=== PATIENT | female | born 1940 | race Caucasian/White ===

== ENCOUNTER 2024-01-19 16:07 | Inpatient (IN) | payer OTHER, SELFPAY ==
[2024-01-19] VITALS (13 sets, daily range): BP systolic 83–131; BP diastolic 33–81; BMI 15.9
--- NOTE | 2024-01-19 14:50 | W.PN.CARDCBS ---
Today's Communication / Plan
-
LHC today
Impression / Plan
-
This is a summary, please see scanned consultation
PCP: Vaughn Gerardo MD
PCY: Neymar Schmitt, DO
83 yo WF h/o transapical TAVR 2019, HTN, HLD, Mesenteric artery stenosis post stenting 2015, 2016, Syncope, CHF, CKD, CAD in D2 and ostial RCA by cath 2019 treated medically. She has had 3 admissions since Jul for recurrent transudative pleural
effusions post b/l thoracentesis, last episode in november also with NSTEMI, LVEF dropped from 55-45% at that time. Over the past few weeks she has had progressive dyspnea, outpt Lexiscan last week showing LAD ischemia. She presents to ER 01/16 with
worsening SOB, CXR consistent with recurrent pleural effusions b/l post thoracentesis ~1L. Echo with worsening EF 30-40%. BNP 3638, troponin peaked 137. She is transferred today for [facility].
01/17/24 ECHO - LVEF 35-40%, apical inferior WMA, mod-sev LVH, mild-mod , no AR, mild-mod MR, mod-sev TR
Impression:
Recurrent pleural effusions
NSTEMI/CAD by cath 2020 RCA and D2 disease
Acute on chronic HFrEF 30-40%
AYAAN on CKD
post transapical TAVR 2019
HTN
HLD
Mesenteric artery stenosis post stenting 2015, 2016
Syncope
Plan:
NSTEMI/CAD - Admit IVU post PCI LAD, residual RCA will need to have staged PCI after she recovers from today
Radial band per protocol
DAPT ASA/Plavix, continue statin, BB
cardiac rehab c/s
f/u Dr. Schmitt in 2-4 weeks
Recurrent pleural effusions - Thoracentesis Wed/Wed, Will need repeat CXR to assess for reaccumulation in 1 month
nutrition consult with low albumin
Chronic HFrEF - continue GDMT, will hold off on starting valsartan, and hold spironolactone and lasix for now, continue carvedilol
daily wt, strict I&O
AYAAN/CKD - trend Cr post cath, limit nephrotoxic medications
mesenteric stent - continue DAPT
Progress Note - Hoop Punch And Coiler Operator Helper
Subjective
Date of Service: January 19, 2024
no cp, sob
Objective
Vital Signs and I&O:
Vital Signs
Temp Pulse Resp BP Pulse Ox
96.0 F L 65 20 107/48 99
01/19/24 12:41 01/19/24 12:41 01/19/24 12:41 01/19/24 12:41 01/19/24 12:41
Vital Signs
Temp Pulse Resp BP Pulse Ox
96.0 F L 65 20 107/48 99
01/19/24 12:41 01/19/24 12:41 01/19/24 12:41 01/19/24 12:41 01/19/24 12:41
[2024-01-19 15:12] LABS: ACT-LR - POC 282 Seconds (116-155)
--- NOTE | 2024-01-19 16:58 | W.PN.UPDATE ---
Update Note
Progress Note Update
CTSP re: radial hematoma. R band in place with 11ml air. Proximal to band there is 3' ecchymosis/bruising approx, soft and easy to press out. Good pleth and O2Sat 100%. 2nd prox band placed with 6ml air and good compression with good pulse and
pleth. Will remove prox band over the next hour and then the distal band as originally instructed. Pt without pain or discomfort.
[2024-01-19] MEDS: NSS 1000 IV (17:33)
[2024-01-19] MEDS: LIPITOR 40 MG PO (18:32)
--- NOTE | 2024-01-19 18:41 | ITS.CL.ANGIO ---
Tufting Machine Operator - Angioplasty
Angioplasty
Procedure Report:
LEFT HEART CATHETERIZATION
Date of Procedure: January 19, 2024
Procedures performed:
1: Coronary angiography
2: Left ventricular hemodynamic assessment
3: Percutaneous coronary intervention of the left anterior descending artery with placement of a 2.5 x 28 mm Xience drug-eluting stent postdilated high-pressure with a 2.5 mm diameter noncompliant balloon
Primary Care Physician: Dr. Vaughn Chester
Primary Vocational Rehab Consultant: Dr. Neymar Schmitt
INDICATION: The patient is an 83-year-old woman with a complex past medical history including TAVR with 20mm Simmons (transapicalin 2019, extremely low weight currently weighing 86 pounds, hypertension, prior SMA stenting for presumed mesenteric
ischemia, and new LV systolic dysfunction without clear etiology and recent admissions for congestive heart failure. Nuclear perfusion imaging study suggested dense LAD territory infarct which was new compared to prior studies last year. Cardiac
catheterization prior to TAVR in 2019 showed no clear obstructive disease. She has had no typical angina. She was admitted with progressive dyspnea and found to have large bilateral pleural effusions which were drained at [facility]. Echo
performed on January 16 showed an ejection fraction of 35 to 40% with mild to moderate mitral regurgitation. She had a 20 mm mean gradient across her TAVR placed in 2019. She is referred for coronary angiography. In the past she had her cath done
femoral late due to severe bilateral Raynaud's disease in her hands. Her TAVR was done via transapical approach due to extremely small iliofemoral and aortic vessels. I elected to perform this radially as she had a very good radial pulse and in
the balance I felt femoral access was more risky.
ACCESS: The patient was prepped and draped in usual sterile fashion. A 6 Russian sheath was placed in the right radial artery using the Seldinger over the wire technique.
HEMODYNAMIC FINDINGS (mmHg):
LV(s/d,EDP): 145/9, 13
Ao(s/d,m): 112/47, 71
Mean gradient across aortic valve on pullback: 26 mmHg
ANGIOGRAPHIC FINDINGS:
Single-plane Left Ventriculography in [place] Projection: Not done with renal insufficiency. Creatinine 1.3 this morning.
Coronary Angiography:
Dominance: Right
Left Main: Somewhat difficult to cannulate given the TAVR cage. Ultimately a 5 Russian JL 3.5 was successfully used to cannulate the left main. Some catheter dampening was noted. The left main is small caliber and there does appear to be a smooth
ostial 20 to 30% stenosis.
Left Anterior Descending: The left anterior descending artery is a medium caliber vessel that gives rise to a small to medium high first diagonal branch. The second diagonal branch is a small caliber vessel. There is moderate diffuse disease
involving the second diagonal takeoff followed by a preocclusive 90% mid LAD stenosis. The remainder the LAD is patent with mild luminal regularities and normal distal flow.
Left Circumflex: The left circumflex is a medium caliber vessel that has a long area of 60% smooth disease through the midportion before giving rise to a long tortuous vessel that courses to the lateral apex with IRINA-3 flow. This appears largely
unchanged compared to prior angiography in 2020 prior to TAVR.
Right Coronary: The right coronary artery ostium has heavily calcified. It was engaged with a 4 Russian JR4 diagnostic catheter with some degree of catheter dampening noted despite coaxial engagement. This was also noted in 2020 prior to TAVR.
This ostial 70 to 80% stenosis appears unchanged. The mid RCA has a new 80 to 90% mid stenosis involving the takeoff of the RV marginal branch. This lesion is new and was not present in 2020. Despite this there is normal distal flow in the small
caliber posterior descending artery and posterior left ventricular branch system which are widely patent.
Percutaneous Coronary Intervention (PCI): In light of her clinical presentation and the above angiographic findings, I elected to proceed with a PCI of the LAD. If this went smoothly I would consider PCI of the right coronary artery. Attempts to
engage the left main with a 6 Russian guide were unsuccessful due to difficulty manipulating the sheath and the very small caliber aortic root around the prior TAVR cage. Ultimately I chose a 5 Russian JL 3.5 guiding catheter to engage the left main.
The patient was pretreated with aspirin and Plavix. Unfractionated heparin was given. With some difficulty a Hi-Torque floppy wire was successfully advanced down the LAD and across the preocclusive mid lesion. Predilation was performed with a
2.0 mm diameter balloon. Next a 2.5 x 28 mm Xience drug-eluting stent was deployed in the mid LAD. The stent was postdilated with a 2.5 mm diameter noncompliant balloon inflated to 16 carol distally and 18 carol proximally. There was transient slow
flow in the small caliber jailed diagonal branch however this flow was normalizing at the end of the procedure.
FINAL RESULT: 0% in-stent residual stenosis with an excellent angiographic result
Fluoroscopy Time (min): 18
Radiation Dose (mGy): 364
DAP (Gy.cm2): 21
Closure device: None. A TR band was applied for hemostasis at the right wrist.
Complications: None.
ASSESSMENT:
1: Successful PCI of the LAD with placement of drug-eluting stent as described above.
2: New high-grade mid RCA disease. Unchanged high-grade ostial right disease. I feel this should be treated in a staged fashion given her renal insufficiency and difficulty with 6 Russian sheaths from the arm. I will plan to have her come back for
6 Russian femoral access in a couple weeks.
3: Well compensated left ventricular filling pressures.
4: Moderate prosthesis stenosis. This was a small 20 mm BELKYS and therefore this is an acceptable post- TVAR result.
CONCLUSIONS and RECOMMENDATIONS:
1: Routine post PCI medical therapy and monitoring with uninterrupted DAPT for 1 year. She has been on chronic DAPT in light of her recurrent SMA stenting.
2: Staged PCI of the right coronary artery disease. Given the new mid RCA disease I will plan to treat both the ostial disease and mid right from a 6 Russian femoral approach.
3: Medical therapy with close clinical follow-up for severe LV systolic dysfunction. Hopefully her ejection fraction will improve with reperfusion.
Sivakumar Elkins M.D.
Copy to: Dr. Vaughn Chester
--- NOTE | 2024-01-19 19:33 | PTCARENOTE ---
Received pt from cardiac skill labor w/ R band intact w/ 10 ml of air. Active bleeding noted proximal to radial band. Pt's right hand eccymotic w/ +1 edema. Immediate manual pressure applied. VSS. Pt's right wrist continued to internally ooze. WARE TESTER
and notified and at pt's bedside continually. Multiple hemostatic methods used. (charted under post angio site checks). At this time, Dr. Elkins evaluated pt again. No further bleed noted. Right radial R band intact w/ 2 ml of air. Pt
denies discomfort. Report given to operations supervisor 2nd shift RN for further treatment.
[2024-01-19] MEDS: COREG 3.125 MG PO (19:47)
[2024-01-19] MEDS: TYLENOL 650 MG PO (19:47)
--- NOTE | 2024-01-19 22:56 | PTCARENOTE ---
Pt rec'd at change of shift awake,alert. Dr Elkins at bedside. Radial site remained ecchymotic but soft with good pulse with R band/ 2cc air. Per Dr Elkins verbal order; R band to be removed if stable in an hour. R band was removed, no hematoma or
active bleeding noted. Sinus with first degree on telemetry. Pt assisted oob to bathroom to void. back in bed at this time. right forearm elevated on pillow. Pt instructed on wrist precautions.
call deluna placed within reach.
[2024-01-20 03:22] VITALS: BP 112/47
[2024-01-20 04:17] LABS: Hematocrit 32.4 % (37.0-47.0); Hemoglobin 10.4 g/dL (12.0-16.0); Mean Corp Hgb Conc. 32.1 g/dL (33.0-37.0); Mean Corpuscular Hgb 25.9 pg (27.0-31.0); Mean Corpuscular Volume 80.6 fL (81.0-99.0); Mean Platelet Volume 11.8 fL (7.4-10.4); Platelet Count 260 10^3/uL (130-400); Red Blood Cell Count 4.02 10^6/uL (4.20-5.40); Red Cell Dist. Width 15.8 % (11.5-14.5); White Blood Cell Count 7.3 10^3/uL (4.8-10.8)
[2024-01-20 04:46] LABS: Blood Urea Nitrogen 50 mg/dl (7-17); Calcium 8.4 mg/dl (8.4-10.2); Carbon Dioxide 25 mmol/L (22-30); Chloride 103 mmol/L (98-107); Estimated Creatinine Clearance 21 ml/min; Glucose 83 mg/dl (70-99); HDL Cholesterol 45 mg/dl; LDL Cholesterol, Calculated 87 mg/dl; Potassium 4.5 mmol/L (3.5-5.1); Sodium 133 mmol/L (135-145); Total Cholesterol 147 mg/dl (50-199); Triglyceride 75 mg/dl (10-149); Very Low Density Lipoprotein 15 mg/dl (0-30); eGFR 44.36
[2024-01-20 06:00] VITALS: BMI 15.9
[2024-01-20 07:16] VITALS: BP 136/61
--- NOTE | 2024-01-20 08:45 | W.PN.CARDCBS ---
Addendum entered and electronically signed by Adilene Russ DO 01/20/24 12:46:
I saw and examined the patient.
The Emery Wheel Molder's note was reviewed and I agree with the note.
Comment: Seen and examined. Patient is ambulating around room and overall feels well. Significant ecchymosis right forearm with mild swelling of the hand. No wrist pain. No dizziness or lightheadedness.
General: No acute distress, AAOX3
Heart: Regular, positive S1/S2, 2/6 SM
Lungs: CTA b/l, negative wheezes/rales/rhonchi
Abd: Positive BS, NT/ND, neg rebound/rigidity/guarding
Ext: Significant ecchymosis right hand and forearm. No significant hematoma. Mild swelling of right hand with good strength. +2 radial pulse
Neuro: nonfocal
Plan:
NSTEMI/CAD transferred from [facility] for left heart catheterization
-post PCI LAD, residual RCA 01/19/2024
-Plan for staged PCI planned for 01/[address] Elkins at
-Radial site HT post procedure, this am significant ecchymosis but non tender with good pulse
-hbg dropped ~1g, 10.4
-Vascular ultrasound right hand rule out pseudoaneurysm or vascular complications following cath
-DAPT ASA/Plavix, continue statin, BB
-cardiac rehab c/s after next intervention
-She will have f/u CXR/labs on Wednesday at prior to her next intervention
-f/u Dr. Schmitt in 2-4 weeks
Recurrent pleural effusions - Thoracentesis Wed/Wed, Will need repeat CXR to assess for reaccumulation will check on Wednesday
nutrition consult with low albumin
Chronic HFrEF - continue GDMT, will hold off on starting valsartan d/t hypotension, Cr stable will resume spironolactone and lasix tomorrow, continue carvedilol
daily wt, strict I&O
AYAAN/CKD - Cr 1.69 at today 1.2, will have repeat labs on Wednesday at
ok to resume Lasix and spironolactone tomorrow, no LISS/ARB for now
mesenteric stent - continue DAPT
Anticipate discharge home later today if vascular ultrasound of right upper extremity okay
Original Note:
Today's Communication / Plan
-
post PCI LAD, residual RCA for staged intervention
rad site HT post procedure, ecchymotic
Impression / Plan
-
This is a summary, please see scanned consultation
PCP: Vaughn Gerardo MD
PCY: Neymar Schmitt,
83 yo WF h/o transapical TAVR 2019, HTN, HLD, Mesenteric artery stenosis post stenting 2015, 2016, Syncope, CHF, CKD, CAD in D2 and ostial RCA by cath 2019 treated medically. She has had 3 admissions since Jul for recurrent transudative pleural
effusions post b/l thoracentesis, last episode in november also with NSTEMI, LVEF dropped from 55-45% at that time. Over the past few weeks she has had progressive dyspnea, outpt Lexiscan last week showing LAD ischemia. She presents to ER 01/16 with
worsening SOB, CXR consistent with recurrent pleural effusions b/l post thoracentesis ~1L. Echo with worsening EF 30-40%. BNP 3638, troponin peaked 137. She is transferred today for [facility].
01/17/24 ECHO - LVEF 35-40%, apical inferior WMA, mod-sev LVH, mild-mod , no AR, mild-mod MR, mod-sev TR
Impression:
Recurrent pleural effusions
NSTEMI/CAD by cath 2020 RCA and D2 disease
Acute on chronic HFrEF 30-40%
AYAAN on CKD
post transapical TAVR 2019
HTN
HLD
Mesenteric artery stenosis post stenting 2015, 2016
Syncope
Plan:
NSTEMI/CAD - Admit IVU post PCI LAD, residual RCA will need to have staged PCI planned for 01/[address] Elkins at
Radial site HT post procedure, this am significant ecchymosis but non tender with good pulse
hbg dropped ~1g, 10.4
DAPT ASA/Plavix, continue statin, BB
cardiac rehab c/s after next intervention
She will have f/u CXR/labs on Wednesday at prior to her next intervention
f/u Dr. Schmitt in 2-4 weeks
Recurrent pleural effusions - Thoracentesis Wed/Wed, Will need repeat CXR to assess for reaccumulation will check on Wednesday
nutrition consult with low albumin
Chronic HFrEF - continue GDMT, will hold off on starting valsartan d/t hypotension, Cr stable will resume spironolactone and lasix tomorrow, continue carvedilol
daily wt, strict I&O
AYAAN/CKD - Cr 1.69 at today 1.2, will have repeat labs on Wednesday at
ok to resume Lasix and spironolactone tomorrow, no LISS/ARB for now
mesenteric stent - continue DAPT
Progress Note - Screening Technician
Subjective
Date of Service: January 20, 2024
no cp, sob
Objective
Labs:
01/20/24 03:33
01/20/24 03:33
Labs
Hgb 10.4 g/dL (12.0-16.0) L 01/20/24 03:33
Hct 32.4 % (37.0-47.0) L 01/20/24 03:33
Plt Count 260 10^3/uL (130-400) 01/20/24 03:33
Sodium 133 mmol/L (135-145) L 01/20/24 03:33
Potassium 4.5 mmol/L (3.5-5.1) 01/20/24 03:33
BUN 50 mg/dl (7-17) H 01/20/24 03:33
Creatinine 1.2 mg/dL (0.6-1.0) H 01/20/24 03:33
Glucose 83 mg/dl (70-99) 01/20/24 03:33
Vital Signs and I&O:
Vital Signs
Temp Pulse Resp BP Pulse Ox
97.5 F 71 20 136/61 100
01/20/24 07:14 01/20/24 08:30 01/20/24 07:14 01/20/24 07:16 01/20/24 07:14
Vital Signs
Temp Pulse Resp BP Pulse Ox
97.5 F 71 20 136/61 100
01/20/24 07:14 01/20/24 08:30 01/20/24 07:14 01/20/24 07:16 01/20/24 07:14
Intake & Output
01/18/24 01/19/24 01/20/24 01/21/24
06:59 06:59 06:59 06:59
Intake Total 100 / 100
Balance 100 / 100
Physical Exam
Physical Exam
NAD< AOX3
S1, S2, RRR
diminished b/l bases, no rales or wheeze
SNTND bsx4
No LE edema
R rad site with significant ecchymosis up to elbow, minimal swelling, good pulse
[2024-01-20] MEDS: COREG 3.125 MG PO (08:48)
[2024-01-20] MEDS: PLAVIX 75 MG PO (08:48)
[2024-01-20] MEDS: LOW STRENGTH ASPIRIN 81 MG PO (08:48)
[2024-01-20 11:30] VITALS: BP 87/65
[2024-01-20 11:31] VITALS: BP 110/54
--- NOTE | 2024-01-20 11:48 | CM ---
Chart reviewed. Patient is independent of ADLS, lives alone in a [address], 1 [place], 0 DME. Patient would like to VN with [place]. Referral sent to [facility] Plan is for the patient to return home with [facility]
--- NOTE | 2024-01-20 13:57 | W.DS.TRANS ---
DC Summary - Change Management Lead
-
Discharge Instructions:
Sleep Apnea Risk Low
Discharge Diagnosis/Procedures Angioplasty with stent to LAD
Diet Low Cholesterol,2 Gram Sodium
Driving Restrictions No driving for 24 hours
Blood Work You will have CXR and labwork done on Wednesday
29 at [place] (orders sent by Dr. Elkins)
Others Tests [facility] will [facility] on Wed
1 for RCA intervention
Other Services Cardiac Rehab
Instructions:
Stand-Alone Forms: DC Instructions- Cath/EP Lab
Changes to Home Medications: No
Discharge Medications:
DC Medications w/original date entered in [place]
ascorbic acid (vitamin C) 500 mg tablet (Vitamin C) 500 mg PO DAILY Supplement 12/20/19
aspirin 81 mg tablet,delayed release (Aspir-Low) 81 mg PO DAILY Blood clot prevention/tx 12/20/19
calcium carbonate 600 mg PO BID Supplement 12/20/19
clopidogrel 75 mg tablet 75 mg PO DAILY Blood clot prevention/tx 12/20/19
ergocalciferol (vitamin D2) 10 mcg (400 unit) tablet 400 unit PO BID Supplement 12/20/19
lecithin 1,200 mg capsule 1,200 mg PO TID Supplement 12/20/19
magnesium oxide 500 mg capsule 500 mg PO DAILY Supplement 12/20/19
acetaminophen 325 mg tablet 650 mg (2 x 325 mg) PO Q6HPRN PRN mild pain 02/23/20
atorvastatin 40 mg tablet 40 mg PO QPM High cholesterol 02/23/20
amoxicillin 500 mg tablet 2,000 mg PO PRN PRN dental work 01/19/24
carvedilol 3.125 mg tablet (Coreg) 3.125 mg PO BID Heart Failure 01/19/24
furosemide 40 mg tablet 40 mg PO DAILY Fluid Retention/Swelling 01/19/24
lactobacillus combination no.4 3 billion cell capsule (Probiotic) 3,000 mmu cells PO DAILY Supplement 01/19/24
spironolactone 25 mg tablet 25 mg PO DAILY Fluid Retention/Swelling 01/19/24
Home Medication Changes
Pending Results: No
[2024-01-20 14:26] LABS: ACT-LR - POC > 397 Seconds (116-155)
--- NOTE | 2024-01-20 15:10 | PTCARENOTE ---
Pt seen by Esmer Veronica NP and . Ultrasound of right arm done, report reviewed. Telemetry and IV device removed. Discharge instructions reviewed with pt regarding activity and driving guidelines, medications and their possible side effects,
wound care, reporting cares and concerns and follow up appt's. Very good understanding verbalized. Pt escorted out via wheelchair and pt discharged to home.
== END 2024-01-20 15:17 | disposition home health service (06) | DRG 321 ==
LOC: IVU 16:07
PROVIDERS: Nurse Practitioner Adult Health; ADMITTING PHYSICIAN Internal Medicine Interventional Cardiology; FAMILY PHYSICIAN Family Medicine
PROC: B2111ZZ Fluoroscopy of Multiple Coronary Arteries using Low Osmolar Contrast (ICD-10-PCS; 2024-01-19)
PROC: 027034Z Dilation of Coronary Artery, One Artery with Drug-eluting Intraluminal Device, Percutaneous Approach (ICD-10-PCS; 2024-01-19)
PROC: 4A023N7 Measurement of Cardiac Sampling and Pressure, Left Heart, Percutaneous Approach (ICD-10-PCS; 2024-01-19)
DX: I21.4 Non-ST elevation (NSTEMI) myocardial infarction (principal); I50.23 Acute on chronic systolic (congestive) heart failure; N17.9 Acute kidney failure, unspecified; I13.0 Hypertensive heart and chronic kidney disease with heart failure and stage 1 through stage 4 chronic kidney disease, or unspecified chronic kidney disease; I25.10 Atherosclerotic heart disease of native coronary artery without angina pectoris; N18.9 Chronic kidney disease, unspecified; E78.5 Hyperlipidemia, unspecified; I73.00 Raynaud's syndrome without gangrene; I25.2 Old myocardial infarction; Z79.82 Long term (current) use of aspirin; Z79.899 Other long term (current) drug therapy; Z95.3 Presence of xenogenic heart valve
CPT/HCPCS: 80048; 80061; 85027; 85347; 87070; 93005; 93458; 93930; C1725; C1769; C1874; C1887; C1894; C9600; Q9967

== ENCOUNTER 2024-01-26 08:11 | Day surgery (SDC) | payer OTHER, SELFPAY ==
[2024-01-26] VITALS (39 sets, daily range): BP systolic 87–147; BP diastolic 38–99; BMI 16.6
[2024-01-26 10:37] LABS: ACT-LR - POC 165 Seconds (116-155)
[2024-01-26 10:48] LABS: ACT-LR - POC 211 Seconds (116-155)
[2024-01-26 11:13] LABS: ACT-LR - POC 371 Seconds (116-155)
[2024-01-26 11:22] LABS: ACT-LR - POC 316 Seconds (116-155)
--- NOTE | 2024-01-26 11:56 | ITS.CL.ANGIO ---
Addendum entered and electronically signed by Sivakumar Elkins MD 01/27/24 11:33:
Correct Date of Procedure: January 26, 2024
Original Note:
Fence Erector - Angioplasty
Angioplasty
Procedure Report:
RIGHT and LEFT HEART CATHETERIZATION
Date of Procedure: November 26, 2023
Procedures performed:
1: Percutaneous coronary mention of the right coronary artery with placement of two drug-eluting stent (2.75 x 28 mm Xience postdilated with a 3.0 mm diameter noncompliant balloon to the mid RCA; 3.25 x 23 mm Xience postdilated with a 3.5 mm
diameter noncompliant balloon distally and 3.75 mm diameter noncompliant balloon ostially)
Primary Care Physician: Dr. Vaughn Gerardo
Primary Garment Examiner: Dr. Neymar Schmitt
INDICATION: The patient is an 83-year-old woman with a complex past medical history who presents for staged PCI of the right coronary artery. This will be done via a left common femoral artery approach due to inability to use 6 Salvadorean catheters
from a right radial. In light of persistently elevated BNP and persistent pleural effusions I we will elect to perform a right heart cath today as well. She underwent PCI of the LAD via right radial approach last week without complication.
ACCESS: The patient was prepped and draped in usual sterile fashion. A 6 Salvadorean sheath was placed in the left common femoral artery using the Seldinger over the wire technique. Ultrasound guidance was used and micropuncture kit was employed.
Angiography showed good puncture above the bifurcation and the common femoral artery. A 6 Salvadorean sheath was placed in the right common femoral vein using ultrasound guidance and an [id number] technique.
HEMODYNAMIC FINDINGS (mmHg):
RA(a,v,m): 14, 10, 10
RV(s/d,EDP): 50/7, 11
PA(s/d/m): 50/21, 32
PCWP(a,v,m): 24, 24, 23
LV(s/d,EDP): Valve not crossed
Ao(s/d,m): 151/55, 89
Oxygen Saturations (mg/dl):
PA: 52% on room air
LV: 92% on room air
Cardiac Output/Index (l/min / l/min/m2):
Estimated Rich Method: 2.3 / 1.7
ANGIOGRAPHIC FINDINGS:
Coronary Angiography: Please refer to full diagnostic study performed on January 19, 2024 last week.
Description of procedure: I advanced a 035 J-wire up the aorta without difficulty. When advancing the 6 Salvadorean JR4 guide over the wire it became apparent that there was interaction with the previously placed mesenteric stent. I assume that the
035 wire went through the stent and then was dislodged with the advancement of the guiding catheter. That said, I did not feel significant resistance with the catheter but rather noticed movement of the stent in the aorta. I suppose it is also
possible that the stent was already dislodged and then my wire and catheter further dislodged it. In retrospect, the CT a performed in 2019 pre-TAVR demonstrated that the stent was extending from the ostium all the way across the aorta to the
opposite wall. At this point I called Dr. Suraj patel from vascular surgery to assist in this unusual situation. We elected to snare the freely mobile stent with a 20 mm gooseneck snare. The stent was captured and then pulled back to the 6 Salvadorean
guide. Unfortunately it would not prolapse through the guide. The sheath was upsized to an 8 and again the snared stent would not collapse into the 8 Salvadorean guide. Fortunately, after placement of a 10 Salvadorean short sheath in the left common
femoral artery, I was able to pull the snared stent out through the guide. This did distort the tip of the 10 Salvadorean guide which was then replaced with a new 10 Salvadorean sheath. I then proceeded to the coronary intervention which is outlined below.
Percutaneous Coronary Intervention (PCI): The patient was pretreated with aspirin and Plavix. Unfractionated heparin was given. A 6 Salvadorean JR4 guiding catheter was used to engage the right coronary artery. A short Hi-Torque floppy wire was
successfully advanced into the distal right coronary artery. Predilation was performed with a 2.0 x 12 mm balloon at the mid RCA lesion. Next a 2.75 x 28 mm stent was deployed in the mid RCA. The stent was postdilated with a 3.0 mm diameter
noncompliant balloon at 16 carol distally, 18 carol in the midportion and 16 carol proximally. Next, a 3.25 x 28 mm stent was deployed proximally covering the ostium and in overlapping fashion with the distal stent. The overlap section was postdilated
with 3.5 mm diameter noncompliant balloon. The ostium was postdilated with a 3.5 followed by a 3.75 mm diameter noncompliant balloon. The ostium was flared at high pressure with a 3.75 mm diameter noncompliant balloon
FINAL RESULT: 0% in-stent residual stenosis of both the ostial and mid overlapping stents with a excellent angiographic result and IRINA-3 flow in all vessels.
Other angiography: At the end of the procedure a hand-injection through the 10 Salvadorean left common femoral sheath showed the vessel to be patent with mild nonflow limiting intimal disruption in the external iliac artery. No flow-limiting dissection.
The sheath did not obstruct flow in the common femoral artery.
FINAL HEMODYNAMICS:
PA(s/d/m): 46/22, 30
PCWP(a,v,m): 17, 18, 16
Fluoroscopy Time (min): 30.2
Radiation Dose (mGy): 327
DAP (Gy.cm2): 26
Closure device: None. A TR band was applied for hemostasis at the right wrist.
Complications: Dislodgment of the previously placed mesenteric stent which was extending into the aorta. Successfully retrieved without acute complication.
ASSESSMENT:
1: Successful PCI of the right coronary artery with placement of 2 drug-eluting stents to the ostium and mid RCA as described above.
2: Dislodgment and retrieval of the previously placed mesenteric stent as described above.. As this was clearly deep into the aorta, I suspect that this was not involved in the ostium. She tolerated this without any symptoms or difficulty so I
elected not to reimage the mesenteric vessels at this time.
CONCLUSIONS and RECOMMENDATIONS:
1: Routine post drug-eluting stent medical therapy and monitoring with uninterrupted dual antiplatelet therapy for at least a year. She had been on chronic DAPT given her complex repeat mesenteric stenting.
2: Close clinical follow-up both for heart failure as well as mesenteric symptoms. Low threshold to reimage prior mesenteric stents with any concerning symptoms. Will discuss with vascular surgeon Dr. Sacha Everett who has been involved in her care
for many years.
Sivakumar Elkins M.D.
Copy to: Dr. Vaughn Gerardo, Dr. Sacha Everett from vascular surgery [facility]
[2024-01-26 12:03] LABS: ACT-LR - POC 218 Seconds (116-155)
[2024-01-26] MEDS: NSS 1000 IV ×3 (12:14→14:45)
[2024-01-26 12:31] LABS: ACT-LR - POC 242 Seconds (116-155)
[2024-01-26 12:39] LABS: ACT-LR - POC 208 Seconds (116-155)
[2024-01-26 12:44] LABS: ACT-LR - POC > 397 Seconds (116-155)
--- NOTE | 2024-01-26 15:21 | CM ---
Chart reviewed. Patient is independent of ADLS, lives alone in a 2 STH, 1 SYDNEE, 0 DME. Patient is current with [facility]. Plan is for the patient to return home with [facility]
--- NOTE | 2024-01-26 17:56 | W.PN.UPDATE ---
Update Note
Progress Note Update
Interventional Cardiology Update
Assessed patient at bedside given concern for left groin hematoma. Patient had gotten out of bed to go to the bathroom after bedrest was completed with acute bleed at the left groin access site. Manual pressure was held with successful hemostasis
after few minutes with hematoma pushed out as best possible. FemoStop placed and discussed with nursing in regards to doing a slow wean.
Will maintain patient on bedrest overnight. Will send an urgent type and screen.
Nelly Zhang MD, FACC, [facility]
[2024-01-26 19:24] LABS: Hematocrit 27.5 % (37.0-47.0); Hemoglobin 8.8 g/dL (12.0-16.0)
[2024-01-26] MEDS: LIPITOR PO (19:41)
--- NOTE | 2024-01-26 19:58 | PTCARENOTE ---
Pt received post cardiac cath with stents to RCA done via left femoral artery site . Initially bialateral femoral sites with scant drainage on dressings, no sign of bleeding or hematoma. Ordered bedrest ended at 17:30, pt sat up for 10 minutes in
bed and then walked with RN to bathroom to void. Left groin hematoma present 'like a small babys' head', site with brisk ooze. Pt back to bed and manual pressure applied, 'staff assist button' summoned assistance. Manual pressure held for at least
10 minutes, femstop place on left femoral artery by SAMEER Sandra. present and femstop pressure reduced to 70mmHg. Pt reported left lower back pain and aching in the top of her left foot, DP pulse no longer present with doppler.
at bedside, femstop placement readjusted and pressure reduced to 24mmHg, left posterior pulse present with doppler. Stat H/H and type and screen sent, soft limb restraint on left ankle per to maintain position, heel foams placed
to prevent decubitus. Plan to keep pt on bedrest tonight, hold evening coreg dose. Monitor closely. BP's at pt's baseline throughout, telemetry shows sinus bruon.
[2024-01-26] MEDS: TYLENOL 650 MG PO (20:07)
[2024-01-26] MEDS: COREG 3.125 MG PO (20:09)
[2024-01-26] MEDS: LIPITOR 40 MG PO (21:32)
[2024-01-26 22:20] LABS: Hematocrit 25.1 % (37.0-47.0); Hemoglobin 8.4 g/dL (12.0-16.0)
--- NOTE | 2024-01-26 23:54 | PTCARENOTE ---
Pt received at start of shift, HR SR 60s-70s. R groin site dressing has old drainage, no new drainage, no firmness or hematoma noted. Femstop in place over L groin, 25mmHg. L groin site ecchymotic, no firmness or hematoma noted. Posterior tibialis
and dorsalis pedis arteries positive with Doppler. L ankle soft limb restraint on to maintain leg position. Pt c/o pain throughout back due to being on bedrest all day, tylenol PRN administered. Dr. Elkins at bedside, femstop readjusted and HOB
raised. Reinforced bedrest status w/ pt. Pt states she has not voided since initial bedrest time ended. Purewick placed on pt and encouraged pt to void. 2200 H&H obtained and sent to lab: Hgb 8.4, Hct 25.1. L groin site and pulses distal to femstop
closely monitored. Pt denies any CP, SOB, or lightheadedness/dizziness at this time. Informed to notify RN if any changes, call deluna within reach.
[2024-01-27] VITALS (11 sets, daily range): BP systolic 125–149; BP diastolic 39–60
[2024-01-27] MEDS: TYLENOL 650 MG PO (00:36)
[2024-01-27 05:01] LABS: Blood Urea Nitrogen 44 mg/dl (7-17); Calcium 8.1 mg/dl (8.4-10.2); Carbon Dioxide 26 mmol/L (22-30); Chloride 106 mmol/L (98-107); Estimated Creatinine Clearance 27 ml/min; Glucose 90 mg/dl (70-99); HDL Cholesterol 51 mg/dl; LDL Cholesterol, Calculated 101 mg/dl; Potassium 4.4 mmol/L (3.5-5.1); Sodium 132 mmol/L (135-145); Total Cholesterol 167 mg/dl (50-199); Triglyceride 79 mg/dl (10-149); Very Low Density Lipoprotein 15 mg/dl (0-30); eGFR 55.21
[2024-01-27 05:14] LABS: Hematocrit 27.5 % (37.0-47.0); Mean Corp Hgb Conc. 32.7 g/dL (33.0-37.0); Mean Corpuscular Hgb 26.6 pg (27.0-31.0); Mean Corpuscular Volume 81.4 fL (81.0-99.0); Mean Platelet Volume 11.8 fL (7.4-10.4); Platelet Count 268 10^3/uL (130-400); Red Blood Cell Count 3.38 10^6/uL (4.20-5.40); Red Cell Dist. Width 16.4 % (11.5-14.5); White Blood Cell Count 9.2 10^3/uL (4.8-10.8)
--- NOTE | 2024-01-27 08:09 | W.PN.CARDCBS ---
Addendum entered and electronically signed by Nelly Zhang MD 01/27/24 16:01:
I saw and examined the patient.
The Gold Leaf Layer's note was reviewed and I agree with the note.
Comment: Briefly, Ms. Rivera is a 83-year-old female with multiple comorbid conditions including hypertension, hyperlipidemia, severe aortic stenosis status post transapical TAVR in 2019, CKD stage IIIb, recurrent pleural effusions in the setting of
acute on chronic heart failure with reduced ejection fraction with last EF of 30 to 40%, mesenteric artery stenosis status post stenting in 2016, coronary artery disease status post LAD PCI on January 19, 2024 who now presented with plan for staged
PCI to the RCA status post 2 drug-eluting stent with a 3.25 x 23 mm Xience to the ostium and 2.75 x 28 mm Xience to the mid RCA complicated by dislodgment and subsequent retrieval of previously placed mesenteric stent using a snare through a 10
Portuguese left common femoral arterial access site with post sheath removal hematoma, now stable
Vital signs and lab work reviewed. Hemoglobin now getting close to baseline. Patient needed additional manual pressure held last evening along with short duration of FemoStop. On exam she is an older female, frail, thin, pleasant, awake and
oriented x 3, complains of some shortness of breath after walking around earlier today, decreased breath sounds in bilateral bases, right worse than the left, abdomen is soft, nontender, nondistended with active bowel sounds, left groin site with
dressing in place which is clean, dry and intact, significant ecchymosis but no evidence of hematoma or bruit on exam, warm extremities
Ultrasound of the groin reviewed which was negative for any evidence of pseudoaneurysm or AV fistula.
Plan:
1. Continue dual antiplatelet therapy with recent PCI.
2. Goal-directed medical therapy for underlying ischemic cardiomyopathy.
3. Given prior history of recurrent pleural effusions and diminished breath sounds on exam we will check a chest x-ray and monitor another night to make sure blood counts get back to baseline and to ensure that she remains stable from a respiratory
standpoint. We will continue diuresis.
4. Encourage incentive spirometry.
Nelly Zhang MD, [facility], [facility]
Addendum entered and electronically signed by RIVER Amezcua 01/27/24 15:40:
Groin u/s neg for PSA, HT, pt still feeling SOB with RLL with diminished BS, will check CXR, we will monitor o/n and repeat labs in am. pt, family and Dr. Elkins agree with plan.
Original Note:
Today's Communication / Plan
-
Check groin u/s this am
oob at 10am
continue DAPT
poss d/c home later today vs tomorrow
Impression / Plan
-
Primary Care Physician: Dr. Vaughn Gerardo
Primary Blanching Machine Operator: Dr. Neymar Schmitt
83-year-old woman with a complex past medical history who presents for staged PCI of the right coronary artery. This will be done via a left common femoral artery approach due to inability to use 6 Portuguese catheters from a right radial. In light of
persistently elevated BNP and persistent pleural effusions I we will elect to perform a right heart cath today as well. She underwent PCI of the LAD via right radial approach last week without complication.
Impression:
CAD/LA post PCI LAD 01/19/24 c/b radial HT
staged PCI RCA x 2 and dislodgement/retrieval of SMA stent 01/26/24
Recurrent pleural effusions
Acute on chronic HFrEF 30-40%
CKD3b
post transapical TAVR 2019
HTN
HLD
Mesenteric artery stenosis post stenting 2015, 2016
Syncope
01/26/24 [facility]:
1: Successful PCI of the right coronary artery with placement of 2 drug-eluting stents to the ostium and mid RCA (2.75 x 28 mm Xience to the mid RCA; 3.25 x 23 mm Xience stent to the ostium)
2: Dislodgment and retrieval of the previously placed mesenteric stent as described above.. As this was clearly deep into the aorta, I suspect that this was not involved in the ostium. She tolerated this without any symptoms or difficulty so I
elected not to reimage the mesenteric vessels at this time.
Plan:
CAD - post PCI RCA x 2 mid/ostial, initially c/b dislodgement of SMA stent which was retrieved
o/n had groin HT manual pressure and femstop applied, hbg drop ~1gm 9.0 this am
Will check groin u/s this am, oob around 10am
DAPT ASA/Plavix, continue statin, BB
cardiac rehab c/s
f/u Dr. Schmitt in 2-4 weeks
Recurrent pleural effusions - stable on CXR Wednesday, will need repeat CXR per Dr. Schmitt in 1 mo
Chronic HFrEF - continue GDMT, no LISS/ARB d/t hypotension, continue spironolactone, lasix, carvedilol
daily wt, strict I&O
CKD3b - Cr 1.0 post cath
mesenteric stent - continue DAPT
pending u/s and groin, poss d/c home later today vs tomorrow (pt lives alone and is nervous about leaving)
Progress Note - Blanching Machine Operator
Subjective
Date of Service: January 27, 2024
no cp, sob, mod left groin tenderness
Objective
Labs:
01/27/24 04:06
01/27/24 04:06
Labs
Hgb 9.0 g/dL (12.0-16.0) L 01/27/24 04:06
Hct 27.5 % (37.0-47.0) L 01/27/24 04:06
Plt Count 268 10^3/uL (130-400) 01/27/24 04:06
Sodium 132 mmol/L (135-145) L 01/27/24 04:06
Potassium 4.4 mmol/L (3.5-5.1) 01/27/24 04:06
BUN 44 mg/dl (7-17) H 01/27/24 04:06
Creatinine 1.0 mg/dL (0.6-1.0) 01/27/24 04:06
Glucose 90 mg/dl (70-99) 01/27/24 04:06
Vital Signs and I&O:
Vital Signs
Temp Pulse Resp BP Pulse Ox
97.5 F 72 18 126/49 94
01/27/24 03:00 01/27/24 04:00 01/27/24 03:00 01/27/24 04:00 01/27/24 03:00
Vital Signs
Temp Pulse Resp BP Pulse Ox
97.5 F 72 18 126/49 94
01/27/24 03:00 01/27/24 04:00 01/27/24 03:00 01/27/24 04:00 01/27/24 03:00
Intake & Output
01/25/24 01/26/24 01/27/24 01/28/24
06:59 06:59 06:59 06:59
Intake Total 790 / 790
Output Total 300 / 300
Balance 490 / 490
Physical Exam
Physical Exam
NAD< AOX3
S1, S2, RRR, I/ JOSE A
CTAB, non labored, no wheeze
SNTND Bsx4
L fem site mildly tender, slightly swollen, moderate ecchymosis
R fem site scant ecchymosis, soft, non tender
[2024-01-27] MEDS: COREG 3.125 MG PO ×2 (09:06→19:48)
[2024-01-27] MEDS: PLAVIX 75 MG PO (09:06)
[2024-01-27] MEDS: ASPIR LOW (ENTERIC COATED) 81 MG PO (09:07)
--- NOTE | 2024-01-27 10:58 | CM ---
Chart reviewed. Patient is independent of ADLS, lives alone in a 2 STH, 1 SYDNEE, 0 DME. Patient developed a hematoma, waiting on US results. Patient is nervous to go home today because of the bleeding at the groin site and living alone. Plan is
for the patient to return home with [facility].
[2024-01-27] MEDS: ALDACTONE 25 MG PO (11:11)
[2024-01-27] MEDS: LASIX 40 MG PO (11:11)
[2024-01-27] MEDS: LIPITOR 40 MG PO (18:12)
--- NOTE | 2024-01-27 18:56 | PTCARENOTE ---
Pt with ecchymotic left groin, no further bleeding or hematoma, U/S done. Pt OOB with assistance, slightly weak initially but improved. Pt later reported some shortness of breath, seen by Esmer Veronica NP, chest xray done showing small bilateral pleural
effusions. Telemetry shows sinus rhythm with a rare run of PVC's.
[2024-01-28] VITALS (10 sets, daily range): BP systolic 118–138; BP diastolic 36–70; BMI 16.9
--- NOTE | 2024-01-28 01:19 | PTCARENOTE ---
Pt received at start of shift, HR SR w/ 1st degree. R groin site dressing CDI, ecchymosis surrounding area, soft. Pt educated on plan of care, pt states understanding. Pt denies any CP, SOB, or lightheadedness/dizziness. Informed to notify RN if any
changes, call deluna within reach.
[2024-01-28 04:17] LABS: Hematocrit 25.2 % (37.0-47.0); Hemoglobin 8.1 g/dL (12.0-16.0); Mean Corp Hgb Conc. 32.1 g/dL (33.0-37.0); Mean Corpuscular Volume 80.8 fL (81.0-99.0); Mean Platelet Volume 11.1 fL (7.4-10.4); Platelet Count 240 10^3/uL (130-400); Red Blood Cell Count 3.12 10^6/uL (4.20-5.40); White Blood Cell Count 8.9 10^3/uL (4.8-10.8)
[2024-01-28 04:42] LABS: Blood Urea Nitrogen 41 mg/dl (7-17); Carbon Dioxide 26 mmol/L (22-30); Chloride 105 mmol/L (98-107); Estimated Creatinine Clearance 25 ml/min; Glucose 94 mg/dl (70-99); Potassium 4.5 mmol/L (3.5-5.1); Sodium 132 mmol/L (135-145); eGFR 49.24
[2024-01-28] MEDS: ASPIR LOW (ENTERIC COATED) 81 MG PO (08:41)
[2024-01-28] MEDS: ALDACTONE 25 MG PO (08:41)
[2024-01-28] MEDS: LASIX 40 MG PO (08:41)
[2024-01-28] MEDS: COREG 3.125 MG PO (08:41)
[2024-01-28] MEDS: PLAVIX 75 MG PO (08:41)
--- NOTE | 2024-01-28 09:27 | W.PN.CARDCBS ---
Addendum entered and electronically signed by Nelly Zhang MD 01/28/24 16:47:
I saw and examined the patient.
The Public Relations Coordinator's note was reviewed and I agree with the note.
Comment: Overall patient is doing well and does not offer any major complaints. Hemoglobin noted to have down trended to 8.1. Vital signs stable. Ultrasound at the groin yesterday without evidence of pseudoaneurysm or AV fistula.
Vital signs and lab work reviewed.
On exam she is an older female, frail, thin, pleasant, awake and oriented x 3, complains of some shortness of breath after walking around earlier today, decreased breath sounds in bilateral bases, right worse than the left, abdomen is soft,
nontender, nondistended with active bowel sounds, left groin site with dressing in place which is clean, dry and intact, significant ecchymosis but no evidence of hematoma or bruit on exam, warm extremities
Chest x-ray reviewed personally by me which shows bilateral pleural effusions small in size
Plan:
1. Continue dual antiplatelet therapy with recent PCI.
2. Goal-directed medical therapy for underlying ischemic cardiomyopathy.
3. Plan for 1 unit of PRBC transfusion with IV diuresis given chronic anemia.
4. Small bilateral pleural effusions noted on chest x-ray, will continue to monitor for now.
5. Will work on discharge home later today if no other issues with plan for cardiology follow-up on Wednesday with [facility] group.
Nelly Zhang MD, [facility], [facility]
Original Note:
Today's Communication / Plan
-
Transfuse 1 u prbcs
home this afternoon
groin check at [facility] on Wednesday
Impression / Plan
-
Primary Care Physician: Dr. Vaughn Gerardo
Primary Oil Field Pipeline Supervisor: Dr. Neymar Schmitt
83-year-old woman with a complex past medical history who presents for staged PCI of the right coronary artery. This will be done via a left common femoral artery approach due to inability to use 6 Cameroonian catheters from a right radial. In light of
persistently elevated BNP and persistent pleural effusions I we will elect to perform a right heart cath today as well. She underwent PCI of the LAD via right radial approach last week without complication.
Impression:
CAD/CT post PCI LAD 01/19/24 c/b radial HT
staged PCI RCA x 2 and dislodgement/retrieval of SMA stent 01/26/24
Recurrent pleural effusions
Acute on chronic HFrEF 30-40%
CKD3b
post transapical TAVR 2019
HTN
HLD
Mesenteric artery stenosis post stenting 2015, 2016
Syncope
01/26/24 [facility]:
1: Successful PCI of the right coronary artery with placement of 2 drug-eluting stents to the ostium and mid RCA (2.75 x 28 mm Xience to the mid RCA; 3.25 x 23 mm Xience stent to the ostium)
2: Dislodgment and retrieval of the previously placed mesenteric stent as described above.. As this was clearly deep into the aorta, I suspect that this was not involved in the ostium. She tolerated this without any symptoms or difficulty so I
elected not to reimage the mesenteric vessels at this time.
Plan:
CAD - post PCI RCA x 2 mid/ostial, initially c/b dislodgement of SMA stent which was retrieved
post procedure groin HT - u/s neg for PSA or HT, ecchymotic and tender
Hbg down to 8.1 today, will transfuse 1 un prbc and recheck cbc in 1 week
DAPT ASA/Plavix, continue statin, BB
cardiac rehab c/s
f/u Dr. Schmitt in 2-4 weeks
groin check at [facility] on Wednesday
Recurrent pleural effusions - some SOB yesterday, CXR with small b/l pleural effusions, will need repeat CXR per Dr. Schmitt in 1 mo
Chronic HFrEF - continue GDMT, no LISS/ARB d/t hypotension, continue spironolactone, lasix, carvedilol
daily wt, strict I&O
CKD3b - Cr stable 1.1 today
mesenteric stent - continue DAPT
After blood transfusion, plan for d/c home
Progress Note - Oil Field Pipeline Supervisor
Subjective
Date of Service: January 28, 2024
no cp, sob, groin tender
Objective
Labs:
01/28/24 03:56
01/28/24 03:56
Labs
Hgb 8.1 g/dL (12.0-16.0) L 01/28/24 03:56
Hct 25.2 % (37.0-47.0) L 01/28/24 03:56
Plt Count 240 10^3/uL (130-400) 01/28/24 03:56
Sodium 132 mmol/L (135-145) L 01/28/24 03:56
Potassium 4.5 mmol/L (3.5-5.1) 01/28/24 03:56
BUN 41 mg/dl (7-17) H 01/28/24 03:56
Creatinine 1.1 mg/dL (0.6-1.0) H 01/28/24 03:56
Glucose 94 mg/dl (70-99) 01/28/24 03:56
Vital Signs and I&O:
Vital Signs
Temp Pulse Resp BP Pulse Ox
98.1 F 105 18 126/70 96
01/28/24 07:51 01/28/24 08:15 01/28/24 07:51 01/28/24 07:53 01/28/24 08:38
Vital Signs
Temp Pulse Resp BP Pulse Ox
98.1 F 105 18 126/70 96
01/28/24 07:51 01/28/24 08:15 01/28/24 07:51 01/28/24 07:53 01/28/24 08:38
Intake & Output
01/26/24 01/27/24 01/28/24 01/29/24
06:59 06:59 06:59 06:59
Intake Total 790 / 790 960 / 960
Output Total 300 / 300 400 / 400
Balance 490 / 490 560 / 560
Physical Exam
Physical Exam
NAD< AOX3
S1, S2, RRR
diminished RLL, non labored, no wheeze
SNTND bsx4
L fem site tender, moderate ecchymosis, R fem with mild ecchymosis
Right arm ecchymotic from previous cath
--- NOTE | 2024-01-28 10:48 | CM ---
Chart reviewed. Patient is independent of ADLS, lives alone in a 2 STH, 1 SYDNEE, 0 DME. Plan is for the patient to return home with CM to follow
[2024-01-28] MEDS: LASIX 20 MG IV (13:51)
--- NOTE | 2024-01-28 15:11 | W.DS.TRANS ---
DC Summary - Press Supervisor
-
Discharge Instructions:
Sleep Apnea Risk Intermediate
Discharge Diagnosis/Procedures Angioplasty with stent to RCA x 2, SMA stent
retreival
Diet Low Cholesterol
Driving Restrictions No driving for 24 hours
Blood Work Check cbc in 1 week
Other Services Cardiac Rehab
Instructions:
Stand-Alone Forms: DC Instructions- Cath/EP Lab
Changes to Home Medications: No
Discharge Medications:
DC Medications w/original date entered in [employer]
ascorbic acid (vitamin C) 500 mg tablet (Vitamin C) 500 mg PO DAILY Supplement 12/20/19
aspirin 81 mg tablet,delayed release (Aspir-Low) 81 mg PO DAILY Blood clot prevention/tx 12/20/19
calcium carbonate 600 mg PO BID Supplement 12/20/19
clopidogrel 75 mg tablet 75 mg PO DAILY Blood clot prevention/tx 12/20/19
ergocalciferol (vitamin D2) 10 mcg (400 unit) tablet 400 unit PO BID Supplement 12/20/19
lecithin 1,200 mg capsule 1,200 mg PO TID Supplement 12/20/19
magnesium oxide 500 mg capsule 500 mg PO DAILY Supplement 12/20/19
acetaminophen 325 mg tablet 650 mg (2 x 325 mg) PO Q6HPRN PRN mild pain 02/23/20
atorvastatin 40 mg tablet 40 mg PO QPM High cholesterol 02/23/20
amoxicillin 500 mg tablet 2,000 mg PO PRN PRN dental work 01/19/24
carvedilol 3.125 mg tablet (Coreg) 3.125 mg PO BID Heart Failure 01/19/24
furosemide 40 mg tablet 40 mg PO DAILY Fluid Retention/Swelling 01/19/24
lactobacillus combination no.4 3 billion cell capsule (Probiotic) 3,000 mmu cells PO DAILY Supplement 01/19/24
spironolactone 25 mg tablet 25 mg PO DAILY Fluid Retention/Swelling 01/19/24
Home Medication Changes
Pending Results: No
--- NOTE | 2024-01-28 17:03 | PTCARENOTE ---
Pt transfused one unit of blood without problem. Telemetry shows sinus rhythm with first degree AV block, rare ruins of tachycardia for 3 seconds,pt asymptomatic, Esmer Veronica, KOJO aware.
Telemetry and IV device removed. Discharge instructions reviewed with pt andher son regarding activity and driving guidelines, wound care, medications and their possible side effects, reporting cares and concerns and follow up lab work and
appointments. Very good understanding verbalized. Pt escorted out via wheelchair and discharged to home.
== END 2024-01-28 17:09 | disposition home or self-care (01) ==
LOC: CATH 08:11
PROVIDERS: Nurse Practitioner Adult Health; ATTENDING PHYSICIAN Internal Medicine Interventional Cardiology; FAMILY PHYSICIAN Family Medicine; OTHER PHYSICIAN Internal Medicine Cardiovascular Disease
DX: I25.10 Atherosclerotic heart disease of native coronary artery without angina pectoris (principal); I21.4 Non-ST elevation (NSTEMI) myocardial infarction; I10 Essential (primary) hypertension; I13.0 Hypertensive heart and chronic kidney disease with heart failure and stage 1 through stage 4 chronic kidney disease, or unspecified chronic kidney disease; I97.88 Other intraoperative complications of the circulatory system, not elsewhere classified; Y84.0 Cardiac catheterization as the cause of abnormal reaction of the patient, or of later complication, without mention of misadventure at the time of the procedure; N18.9 Chronic kidney disease, unspecified; I50.23 Acute on chronic systolic (congestive) heart failure; I35.0 Nonrheumatic aortic (valve) stenosis; Z95.2 Presence of prosthetic heart valve; S30.1XXA Contusion of abdominal wall, initial encounter; Y84.9 Medical procedure, unspecified as the cause of abnormal reaction of the patient, or of later complication, without mention of misadventure at the time of the procedure; J90 Pleural effusion, not elsewhere classified; R55 Syncope and collapse; E78.5 Hyperlipidemia, unspecified; Z95.5 Presence of coronary angioplasty implant and graft; K55.1 Chronic vascular disorders of intestine; D62 Acute posthemorrhagic anemia; I95.9 Hypotension, unspecified; Z79.02 Long term (current) use of antithrombotics/antiplatelets; Z79.82 Long term (current) use of aspirin
CPT/HCPCS: 37197; 36430; 71046; 80048; 80061; 85014; 85018; 85027; 85347; 86850; 86900; 86901; 86920; 93005; 93451; 93926; C1725; C1769; C1874; C1887; C1894; C9600; P9016; Q9967